=== PATIENT | female | born 1970 | race Caucasian/White ===

== ENCOUNTER 2023-12-12 04:24 | Emergency (ER) | payer MEDICAID, OTHER ==
[~2023-12-12] VITALS: Ht 157.5 cm; Wt 70.0 kg
[2023-12-12] MEDS: DiphenhydrAMINE HCL 25 MG CAPSULE PO ONE (05:56)
[2023-12-12] MEDS: TRIAMCINOLONE 0.1% 15 GM CREAM TP ONE (05:56)
[2023-12-12] MEDS ORDERED: PRED-554 PO (06:27)
[2023-12-12] MEDS ORDERED: DIPH25TA51 PO (06:28)
[2023-12-12 06:46] VITALS: BP 119/75; PULSE 71; RESP 16; TEMP 98.3; O2SAT 100
== END 2023-12-12 06:59 | disposition home or self-care (01) ==
LOC: EMS 04:24
DX: L25.9 Unspecified contact dermatitis, unspecified cause (principal)
CPT/HCPCS: 99283